=== PATIENT | female | born 1980 | race African-American/Black ===

== ENCOUNTER 2020-07-20 10:52 | Emergency (ER) | payer SELFPAY ==
[~2020-07-20] VITALS: Ht 165.1 cm; Wt 68.2 kg
[2020-07-20 11:10] VITALS: BP 151/91
[2020-07-20] MEDS ORDERED: methylPREDNISolone SOD SUCC PF 125 MG/2 ML VIAL. IM ONE (11:30)
[2020-07-20] MEDS ORDERED: methylPREDNISolone SOD SUCC PF 125 MG/2 ML VIAL. ONE (11:44)
[2020-07-20] MEDS ORDERED: METH4TAB2 PO (11:52)
[2020-07-20] MEDS ORDERED: DICL50TA2 PO (11:52)
[2020-07-20] MEDS ORDERED: CYCL10TA2 PO (11:52)
--- NOTE | 2020-07-20 11:53 | PHYS DOC ---
General Adult EDM: Chief Complaint: SHOULDER INJURY HPI: HPI: Patient is a 40 year old this is a 40-year-old female patient presenting to the ED today complaining of 10 out of 10 right shoulder pain worse on range of motion, symptoms began a week ago. Patient states pain is worse when she raises her right upper extremity above her head. Denies anything specifically relieving the pain, she states she has tried heat and cold with no relief. She states she would like an MRI of her right shoulder. Denies any numbness or tingling to bilateral upper extremities. Review of Systems: Review of Systems: Constitutional: Denies fever or chills. [] Musculoskeletal: Reports right shoulder pain Integument: Denies rash. [] Neurologic: Denies headache, focal weakness or sensory changes. [] Psychiatric: Denies depression or anxiety. [] Heart Score: Risk Factors: Risk Factors: DM, Current or recent (<one month) smoker, HTN, HLP, family history of CAD, obesity. Risk Scores: Score 0 - 3: 2.5% MACE over next 6 weeks - Discharge Home Score 4 - 6: 20.3% MACE over next 6 weeks - Admit for Clinical Observation Score 7 - 10: 72.7% MACE over next 6 weeks - Early Invasive Strategies Current Medications: Current Medications Medications (Trade) Dose Ordered Sig/Ector Start Time Stop Time Status Last Admin Dose Admin Methylprednisolone Sodium Succinate (SOLU-Medrol 125MG VIAL) 125 mg 1X ONCE 07/20/20 11:30 07/20/20 11:31 UNV Physical Exam: PE: Constitutional: Well developed, well nourished, no acute distress, non-toxic appearance. []] Skin: Warm, dry, no erythema, no rash. [] Back: No tenderness, no CVA tenderness. [] Extremities: Right upper extremity with no obvious deformity, no bruising. Full range of motion to the right shoulder. Reproducible right shoulder pain on elevation of the right upper extremity above the head. Adequate radial, median, ulnar sensation to the right upper extremity. +2 right radial pulse. Cap refill less than 2 seconds the right fingers. 5/5 strength to bilateral upper extremities. Neurologic: Alert and oriented X 3, normal motor function, normal sensory function, no focal deficits noted. [] Psychologic: Affect normal, judgement normal, mood normal. [] EKG: EKG: [] Radiology/Procedures: Radiology/Procedures: [] Course & Med Decision Making: Course & Med Decision Making Pertinent Labs and Imaging studies reviewed. (See chart for details) This is a 40-year-old female patient presenting to the ED today with right shoulder pain, no known injury. Patient requesting MRI of the right shoulder. There is no indication for MRI. Patient was advised to follow-up with an orthopedic doctor which was provided. Dragon Disclaimer: Dragbev Disclaimer: This electronic medical record was generated, in whole or in part, using a voice recognition dictation system. Departure Departure Impression: Primary Impression: Right shoulder pain Qualified Codes: M25.511 - Pain in right shoulder Disposition: 01 HOME, SELF-CARE Condition: STABLE Referrals: NO PCP (PCP) NICOLÁS MOODY II, MD Follow-up in 1 week Patient Instructions: Shoulder Pain, [id number] Additional Instructions: You were evaluated in the emergency room for right shoulder pain. Please contact the provided orthopedic doctor and follow-up. Try to ice and elevate the extremity. Come back to the ED at any point symptoms worsen. Scripts Diclofenac Potassium (DICLOFENAC POTASSIUM) 50 Mg Tablet 1 TAB PO BID, #20 TAB 0 Refills Prov: JAIME CHAVEZ APRN 07/20/20 Cyclobenzaprine Hcl (CYCLOBENZAPRINE HCL) 10 Mg Tablet 1 TAB PO TID, #30 TAB Prov: JAIME CHAVEZ APRN 07/20/20 Methylprednisolone (MEDROL) 4 Mg Tab.ds.pk 1 PKG PO UD, #1 PKG Prov: JAIME CHAVEZ APRN 07/20/20 Justicifation of Admission Dx: Justifications for Admission: Justification of Admission Dx: N/A JAIME CHAVEZ APRN Jul 20, 2020 11:53
== END 2020-07-20 12:17 | disposition home or self-care (01) ==
LOC: ER 10:52
DX: M25.511 Pain in right shoulder (principal); R20.2 Paresthesia of skin
CPT/HCPCS: 96372; 99283; J2930